=== PATIENT | female | born 1960 | race Asian ===

== ENCOUNTER 2017-08-10 14:54 | Outpatient (CLI) | payer BC | END 2017-08-10 20:35 | disposition home or self-care (01) | LOC: SMA 14:54 | DX: Z12.31 Encounter for screening mammogram for malignant neoplasm of breast (principal) | CPT/HCPCS: G0202 ==

== ENCOUNTER 2018-10-11 08:00 | Outpatient (CLI) | payer BC | END 2018-10-11 17:55 | disposition home or self-care (01) | LOC: SMA 08:00 | DX: Z12.31 Encounter for screening mammogram for malignant neoplasm of breast (principal) | CPT/HCPCS: 77067 ==

== ENCOUNTER 2021-08-06 14:05 | Outpatient (CLI) | payer BC | END 2021-08-06 20:18 | disposition home or self-care (01) | LOC: SMA 14:05 | PROVIDERS: ATTEND Preventive Medicine Preventive Medicine/Occupational Environmental Medicine | DX: Z12.31 Encounter for screening mammogram for malignant neoplasm of breast (principal) | CPT/HCPCS: 77067 ==

== ENCOUNTER 2023-08-21 15:38 | Outpatient (CLI) | payer BC | END 2023-08-21 18:37 | disposition home or self-care (01) | LOC: SMA 15:38 | PROVIDERS: ATTEND Preventive Medicine Preventive Medicine/Occupational Environmental Medicine | DX: Z12.31 Encounter for screening mammogram for malignant neoplasm of breast (principal) | CPT/HCPCS: 77067 ==